=== PATIENT | male | born 1990 | race African-American/Black ===

== ENCOUNTER 2020-06-15 00:34 | Emergency (ER) | payer SELFPAY ==
--- NOTE | ~2020-06-15 | CT_ITS ---
EXAMINATION: CT brain wo con EXAM DATE: 06/15/2020 02:27 INDICATION: Headache. TECHNIQUE: Spiral CT of the head was performed without contrast. Axial, coronal and sagittal images were reviewed. The dose-length product (DLP) for this examination was 605.33 mGy-cm. The exposure w as tailored according to patient size, and iterative reconstruction (ASIR) was used as additional dos e reduction technique. There is no prior study for comparison. FINDINGS: There is no acute intraparenchymal hemorrhage. No evidence of intraparenchymal brain mass lesion. No evidence of acute infarction. There is no mass effect or midline shift. The ventricles are normal in size. There are no extra-axial collections. There are no acute calvarial fractures. T he orbits are unremarkable. Soft tissue is unremarkable. The visualized sinuses and mastoid air edith ls are well aerated. IMPRESSION: Normal head CT examination. Reviewed, dictated and finalized at location A. MAKER IMPRESSION: Normal head CT examination.
[2020-06-15 00:42] VITALS: BP 132/82; PULSE 58; RESP 16; TEMP 36.6; O2SAT 97
[2020-06-15 01:00] VITALS: BP 125/91; PULSE 60; RESP 18; O2SAT 97
--- NOTE | 2020-06-15 01:13 | ED.HA ---
HPI - Headache General Chief Complaint: Headache Stated Complaint: headache Time Seen by Provider: 06/15/20 00:47 Source: RN notes reviewed History of Present Illness HPI Narrative: Patient presents emergency department from home for headache. Patient states over the last 2 weeks has been having intermittent headaches that are over the bilateral temporal region. Described as aching and pressure in nature and usually last approximately 1 to 2 hours and then resolve on their own. He states that prior to 2 weeks ago he had no history of regular headaches. He states that this evening he also experienced a nosebleed states he has had a history of intermittent nosebleeds since he was a child but this episode lasted longer he denies any bleeding at this time he denies any fevers or chills vision changes numbness or tingling in extremities chest pain shortness of breath abdominal pain nausea vomiting or any other symptoms he does note 1 single episode of emesis yesterday but denies any today states he took no pain medication for the symptoms Related Data Allergies Allergy/AdvReac Type Severity Reaction Status Date / Time No Known Allergies Allergy Verified 06/15/20 01:40 Review of Systems Review of Systems: Narrative: Gen.: Denies fevers or chills Eyes: Denies eye pain or visual change ENT: Denies congestion or's epistaxes earlier Respiratory: Denies shortness of breath or cough CV: Denies chest pain or palpitations GI: Denies abdominal pain nausea, emesis or diarrhea Musculoskeletal: Denies back pain or muscle pain Neuro: See HPI Skin: Denies rash Except as documented, all other systems reviewed and negative [facility] Past Medical History Medical History (Updated 06/15/20 @ 02:54 by Tree Sharma DO) Patient denies significant medical history Social History Social History (Updated 06/15/20 @ 01:14 by Tree Sharma DO) Smoking status: Current every day smoker Gender identity (if verbalized by the patient): Male Exam Narrative: Exam Narrative: APPEARANCE: No acute distress, nontoxic, resting in bed HEENT: Normocephalic, atraumatic, OMM, TMs clear bilaterally EYES: PERRL, EOMI NECK: Supple, nontender, full range of motion without pain, no meningismus RESPIRATORY: No respiratory distress, clear to auscultation bilaterally with no rhonchi wheezing or rales CARDIOVASCULAR: RRR s murmur ABDOMINAL: Soft, nontender, nondistended MUSCULOSKELETAL: Moves all extremities. No clubbing, cyanosis or edema. NEURO: A and O ?3, following commands, speech normal, no facial droop,muscle strength 5 out of 5 bilateral upper and lower extremities SKIN:: Warm, dry. Normal Color PSYCHIATRIC: Normal affect/mood Course Course Emergency Course: Patient states headache is improved with medication Discussed with patient results of workup and diagnosis. Discussed need for follow-up with primary care, proper use of medication, and reasons to return to the emergency department. Patient understands and agrees to current treatment plan Vital Signs Vital signs: Vital Signs Temperature 97.8 F 06/15/20 00:42 Pulse Rate 58 L 06/15/20 00:42 Respiratory Rate 16 06/15/20 00:42 Blood Pressure 132/82 06/15/20 00:42 Pulse Oximetry 97 06/15/20 00:42 Temperature 97.8 F 06/15/20 00:42 Pulse Rate 58 L 06/15/20 00:42 Respiratory Rate 16 06/15/20 00:42 Blood Pressure 132/82 06/15/20 00:42 Pulse Oximetry 97 06/15/20 00:42 MDM - Headache MDM Narrative Medical decision making narrative: Patient's headache was not sudden or maximal in onset. There are no focal deficits on exam. Subarachnoid hemorrhage is felt to be unlikely at this time. There is no history of fever and neck is supple to evaluation without meningismus. Meningitis is felt to be unlikely. No traumatic history or signs of trauma on evaluation. Risk factors for cerebral venous thrombosis reviewed, no visual acuity change benign funduscopy. Cerebral venous thrombosis
[2020-06-15 01:29] LABS: Basophils Absolute Auto 0.1 K/mm3 (0.0-0.1); Basophils Percent Auto 0.7 % (0.2-1.2); Eosinophils Absolute Auto 0.1 K/mm3 (0-0.3); Eosinophils Percent Auto 1.4 % (0-4.4); Hematocrit 40.6 % (42.0-52.0); Hemoglobin 13.9 g/dL (14.0-18.0); Immature Granulocyte Absolute 0.01 K/mm3 (0.00-0.031); Immature Granulocyte Percent A 0.1 % (0-0.5); Lymphocytes Absolute Auto 3.36 K/mm3 (0.9-3.2); Lymphocytes Percent Auto 45.4 % (18.3-44.2); Mean Corpuscular HGB Conc 34.2 g/dl (32-36); Mean Corpuscular Hemoglobin 28.4 pg (26-34); Mean Corpuscular Volume 82.9 fl (80-100); Mean Platelet Volume 10.1 fl (7.4-10.4); Monocytes Absolute Auto 0.8 K/mm3 (0.1-0.6); Monocytes Percent Auto 11.2 % (2.6-8.5); Neutrophils Absolute Auto 3.1 K/mm3 (1.3-6.7); Neutrophils Percent Auto 41.2 % (45.5-73.1); Platelet Count Result 236 k/mm3 (150-375); Red Cell Distribution Width 14.4 % (11.5-14.5); White Blood Count 7.4 K/mm3 (4.5-10.0)
[2020-06-15] MEDS: diphenhydrAMINE HCl INJ 50 MG/ML VIAL 25 MG IV PUSH (01:41)
[2020-06-15] MEDS: KETOROLAC 30 MG/ML VIAL (*BKC) IV PUSH (01:41)
[2020-06-15] MEDS: SODIUM CHLORIDE 0.9% IV 1,000 ML 999 ML IV CONT (01:42)
[2020-06-15 01:52] LABS: Alanine Aminotransferase 21 U/L (4-50); Alkaline Phosphatase 45 U/L (38-126); Anion Gap 6 mmol/L (8-16); Aspartate Amino Transferase 25 U/L (17-59); Bilirubin,Total 0.5 mg/dL (0.2-1.3); Blood Urea Nitrogen 7 mg/dL (9-20); Carbon Dioxide 31 mmol/L (22-30); Chloride 103 mmol/L (98-107); Estimated CRCL calculation 124 ml/min; Estimated Glomerular Filt Rate > 60; Glucose 84 mg/dL (75-110); Potassium 3.6 mmol/L (3.4-5.0); Sodium 140 mmol/L (137-145)
[2020-06-15 02:00] VITALS: BP 140/99; PULSE 58; RESP 16; O2SAT 100
[2020-06-15 03:00] VITALS: BP 133/83; PULSE 56; RESP 16; O2SAT 98
== END 2020-06-15 03:30 | disposition home or self-care (01) ==
PROVIDERS: Emergency Provider Emergency Medicine; Referring Provider Family Medicine
DX: R51.9 Headache, unspecified (principal); F17.200 Nicotine dependence, unspecified, uncomplicated
CPT/HCPCS: 36415; 70450; 80053; 85025; 96361; 96374; 96375; 99284; J1200; J1885; J7030

== ENCOUNTER 2020-10-07 16:39 | Emergency (ER) | payer SELFPAY ==
--- NOTE | ~2020-10-07 | XR_ITS ---
XR shoulder LT min 2V DATE: 10/07/2020 17:27 INDICATION: Pain, numbness of arm. TECHNIQUE: 4 views COMPARISON: None FINDINGS: No fracture or dislocation, periosteal reaction or bone destruction or abnormal soft tissue calcification. IMPRESSION: Negative Reviewed, dictated and finalized at location A. IMPRESSION: Negative
[2020-10-07 17:04] VITALS: PULSE 119; RESP 20; TEMP 37.1; O2SAT 98
[2020-10-07] MEDS: KETOROLAC (*BKC) 60 MG/2 ML VIAL IM (19:20)
[2020-10-07 19:35] VITALS: BP 135/74; PULSE 83; RESP 16; O2SAT 98
--- NOTE | 2020-10-07 20:23 | ED.GENADULT ---
HPI - General Adult General Chief complaint: Extremity Injury, Upper Stated complaint: left shoulder pain Time Seen by Provider: 10/07/20 18:49 Source: patient Mode of arrival: ambulatory Limitations: no limitations History of Present Illness HPI narrative: Patient presents with chief complaint of dislocation to the left shoulder that occurred when he reached back and out for a light switch. 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 Patient states he generally is able to reduce it on his own but was unable to so he presented to the emergency department. Patient states that he believes his shoulder may have relocated while waiting in the waiting room. Patient states that he has also had issues where his knee dislocated but not at this time. Patient does not have a primary care provider. Patient has not seen lan specialist for his shoulder but has thought about it as this continues to happen so easily. Related Data Home Medications Medication Instructions Recorded Confirmed No Home Medications 10/07/20 10/07/20 Allergies Allergy/AdvReac Type Severity Reaction Status Date / Time No Known Allergies Allergy Verified 10/07/20 18:39 Review of Systems Review of Systems: Narrative: CONSTITUTIONAL: Denies fever, chills, or sweats. EYES: Denies visual changes, redness, or discharge. ENT: Denies rhinorrhea, congestion, sore throat, or otalgia. CARDIOVASCULAR: Denies chest pain, palpitations, or edema. RESPIRATORY: Denies cough or dyspnea. GASTROINTESTINAL: Denies abdominal pain, nausea, vomiting, or diarrhea. GENITOURINARY: Denies dysuria or hematuria. SKIN: Denies rash or itching. MUSCULOSKELETAL: Left shoulder pain and dislocation denies back pain or myalgia. NEUROLOGIC: Denies headache, numbness, dizziness, or weakness. PSYCHIATRIC: Denies anxiety or depression. PMFSH Past Medical History Medical History (Updated 10/07/20 @ 18:54 by Milena Rice PA-C) Patient denies significant medical history Social History Social History (Updated 06/15/20 @ 01:14 by Tree Sharma DO) Smoking status: Current every day smoker Gender identity (if verbalized by the patient): Male Exam Narrative: Exam Narrative: GENERAL: Well-appearing, well-nourished, and in no acute distress. HEAD: Normocephalic, atraumatic. EYES: PERRLA and EOMI. ENT: Nares clear, no rhinorrhea or epistaxis. Mucous membranes moist. Oropharynx without tonsillar hypertrophy exudate or other lesions. Bilateral TMs pearly zarate nonbulging NECK: Supple. No adenopathy or masses. CHEST: Clear to auscultation. No respiratory distress. No wheezes rales or rhonchi HEART: Regular rate and rhythm. No murmur heard. Normal peripheral pulses. EXTREMITIES: No appreciated deformity to left shoulder however there is tenderness with anterior palpation. Normal range of motion. No edema. SKIN: Warm, dry, no rash. NEURO: No focal deficits. Alert and oriented x3. PSYCH: Normal mood and affect. Course Vital Signs Vital signs: Vital Signs Temperature 98.7 F 10/07/20 17:04 Pulse Rate 119 H 10/07/20 17:04 Respiratory Rate 20 10/07/20 17:04 Pulse Oximetry 98 10/07/20 17:04 Temperature 98.7 F 10/07/20 17:04 Pulse Rate 83 10/07/20 19:35 Respiratory Rate 16 10/07/20 19:35 Blood Pressure 135/74 10/07/20 19:35 Pulse Oximetry 98 10/07/20 19:35 Medical Decision Making MDM Narrative Medical decision making narrative: X-ray shows the patient's left elbow is not dislocated. Patient given Toradol shot for pain. Patient instructed to follow-up with primary care lan specialist for further investigation. I have informed the patient with how easy he is to shoulder sliding out he may have some tendon and ligament damage that needs to be repaired or evaluated. He also maintain having his knee dislocate. Consult the patient to discuss evaluation for Oj-Danlos or other conne
== END 2020-10-07 19:35 | disposition home or self-care (01) ==
PROVIDERS: Emergency Provider Emergency Medicine
DX: M24.412 Recurrent dislocation, left shoulder (principal); F17.200 Nicotine dependence, unspecified, uncomplicated
CPT/HCPCS: 73030; 96372; 99283; J1885

== ENCOUNTER 2023-05-27 10:15 | Emergency (ER) | payer SELFPAY ==
--- NOTE | ~2023-05-27 | CT_ITS ---
EXAMINATION: CT soft tissue neck w con DATE: 05/27/2023 11:43 INDICATION: Right neck abscess. TECHNIQUE: Computed tomography (CT) of the neck was performed with 75 mL Omnipaque-350 intravenous co ntrast. Automated exposure control and iterative reconstruction technique were employed. The dose-monica gth product was 548.40 mGy-cm. COMPARISON: None FINDINGS: There are no pathologically enlarged lymph nodes. There is subcutaneous fat stranding of th e lower face. There are mucous retention cysts in the maxillary sinuses. The mastoid air cells are no rmal. There is mild cervical spondylosis. IMPRESSION: 1. Subcutaneous fat stranding in the lower face, consistent with inflammation. No abscess. Reviewed, dictated and finalized at location E.
[2023-05-27 10:58] LABS: Basophils Absolute Auto 0.1 K/mm3 (0.0-0.1); Basophils Percent Auto 0.6 % (0.2-1.2); Eosinophils Absolute Auto 0.1 K/mm3 (0-0.3); Eosinophils Percent Auto 0.6 % (0-4.4); Hematocrit 44.1 % (42.0-52.0); Hemoglobin 14.4 g/dL (14.0-18.0); Immature Granulocyte Absolute 0.02 K/mm3 (0.00-0.031); Immature Granulocyte Percent A 0.2 % (0-0.5); Lymphocytes Absolute Auto 2.37 K/mm3 (0.9-3.2); Lymphocytes Percent Auto 24.4 % (18.3-44.2); Mean Corpuscular HGB Conc 32.7 g/dl (32-36); Mean Corpuscular Hemoglobin 27.2 pg (26-34); Mean Corpuscular Volume 83.2 fl (80-100); Mean Platelet Volume 10.4 fl (7.4-10.4); Monocytes Absolute Auto 1.2 K/mm3 (0.1-0.6); Monocytes Percent Auto 12.8 % (2.6-8.5); Neutrophils Percent Auto 61.4 % (45.5-73.1); Platelet Count Result 242 k/mm3 (150-375); Red Cell Distribution Width 14.1 % (11.5-14.5); White Blood Count 9.7 K/mm3 (4.5-10.0)
--- NOTE | 2023-05-27 11:09 | ED.SKABFB ---
HPI - Skin/Abscess/Foreign Bdy General Chief complaint: Skin/Abscess/Foreign Body Stated complaint: abscess Time Seen by Provider: 05/27/23 10:26 Source: patient Mode of arrival: ambulatory Limitations: no limitations History of Present Illness HPI narrative: Patient is a 32-year-old male who presents the ED with report of abscess to his neck and chin. Patient reports he first noticed an abscess to his right lower neck a few days ago. He has tried popping and draining it without improvement. He reports localized pain, but denies difficulty breathing or swallowing. He then noticed several areas of tenderness and scabbing, yellow drainage underneath it but his chin with the tenderness extending down his neck. He thinks he knicked this area while shaving. Denies any fevers, N/V. Related Data Allergies Allergy/AdvReac Type Severity Reaction Status Date / Time No Known Allergies Allergy Verified 10/07/20 18:39 Review of Systems Review of Systems: CONSTITUTIONAL: Denies fever, chills, or sweats. ENT: See HPI. CARDIOVASCULAR: Denies chest pain. RESPIRATORY: Denies dyspnea. GASTROINTESTINAL: Denies nausea, vomiting. SKIN: See HPI. NEUROLOGIC: Denies headache, numbness, or weakness. All systems reviewed & are unremarkable except as noted in HPI and below PMFSH Past Medical History Medical History Patient denies significant medical history Social History Social History Smoking status: Current every day smoker Gender identity (if verbalized by the patient): Male Exam Narrative: GENERAL: Well appearing, obese with BMI of 32.9, non-toxic, in no acute distress. HEAD: Normocephalic, atraumatic. NECK: Supple. No adenopathy, no masses. 2x2cm focal abscessed area to R anterior lower neck. Small area of focal fluctuance and tenderness noted. White pustular head to abscess with scabbed region. Scattered pustular areas under left sided chin with some crusted yellow drainage. No focal fluctuance noted. Induration under pustular regions extending approx 5cm down anterior neck. RESPIRATORY: Airway patent, respirations nonlabored. Clear to auscultation bilaterally, no rales, rhonchi, wheezing. No stridor. CARDIOVASCULAR: Regular rate and rhythm without murmurs, rubs, or gallops. Radial pulses 2+ and equal bilaterally. MUSCULOSKELETAL: Moves all extremities. No gross deformities. SKIN: Warm, dry, normal color. No rashes. NEURO: A&O X3. Speech clear. Cranial nerves II-XII grossly intact. Steady gait. No ataxic movements. PSYCHIATRIC: Appropriate mood and affect. Normal interaction. Course Vital Signs Vital signs: Vital Signs Pulse Rate 67 05/27/23 12:51 Respiratory Rate 15 05/27/23 12:51 Blood Pressure 118/77 05/27/23 12:51 Pulse Oximetry 100 05/27/23 12:51 Pulse Rate 67 05/27/23 12:51 Respiratory Rate 15 05/27/23 12:51 Blood Pressure 118/77 05/27/23 12:51 Pulse Oximetry 100 05/27/23 12:51 Procedures Abscess I/D neck: Date of Incision: 05/27/23 Time of Incision: 12:40 Side (if applicable): right Sedation/analgesia: none Local Anesthetic: lidocaine 1% Amount of anesthesia used (mL): 3 Technique: incised with #11 blade Amount of fluid expressed (mL): 2 Irrigation: Yes Packing used?: none I&D Results: Pus and Blood Complications: other (none) MDM - Skin/Abscess/Foreign Bdy MDM Narrative Medical decision making narrative: Patient presented to ED with abscess to areas to right-sided neck, left chin. Patient's vital stable upon arrival. Afebrile. Exam consistent with abscess to right-sided neck. Pustular areas under her chin appear more consistent with impetigo with crusted yellow drainage. The induration under the chin does seem to extend fairly deep and down the anterior neck. Difficult
[2023-05-27 11:10] LABS: Anion Gap 7 mmol/L (8-16); Blood Urea Nitrogen 12 mg/dL (9-20); Calcium 9.3 mg/dL (8.4-10.2); Carbon Dioxide 30 mmol/L (22-30); Chloride 100 mmol/L (98-107); Estimated CRCL calculation 135 ml/min; Estimated Glomerular Filt Rate > 60; Glucose 83 mg/dL (65-110); Potassium 4.1 mmol/L (3.4-5.0); Sodium 137 mmol/L (137-145)
[2023-05-27] MEDS: LIDOCAINE HCL 1% LOCAL INJ 10 ML VIAL 5 ML INFILTRATE (12:20)
[2023-05-27] MEDS: DOXYCYCLINE HYCLATE 100 MG TABLET PO (12:44)
[2023-05-27 12:51] VITALS: BP 118/77; PULSE 67; RESP 15; O2SAT 100
== END 2023-05-27 12:53 | disposition home or self-care (01) ==
PROVIDERS: Emergency Provider Physician Assistant
DX: L02.11 Cutaneous abscess of neck (principal); L01.00 Impetigo, unspecified; F17.200 Nicotine dependence, unspecified, uncomplicated
CPT/HCPCS: 10060; 36415; 70491; 80048; 85025; 87070; 87077; 87147; 87186; 87205; 99284; A9270; Q9967

== ENCOUNTER 2023-08-26 06:20 | Emergency (ER) | payer SELFPAY ==
--- NOTE | ~2023-08-26 | CT_ITS ---
EXAMINATION: CT pelvis w con DATE: 08/26/2023 09:51 INDICATION: Abscess of left buttock. TECHNIQUE: Computed tomography (CT) of the pelvis was performed with 100 mL Omnipaque 350 intravenous contrast. Automated exposure control and iterative reconstruction technique were employed. The dose- length product was 510.80 mGy-cm. COMPARISON: None FINDINGS: There are no dilated loops of bowel. There are no pathologically enlarged lymph nodes. Ther e is no free intraperitoneal fluid. In the subcutaneous fat of the left buttocks, there is a weblike distribution of fluid spanning 5.7 x 3.7 cm with surrounding fat stranding. There is mild lumbar spon dylosis. IMPRESSION: 1. Weblike distribution of fluid with surrounding fat stranding in the subcutaneous fat in left butto ck, consistent with abscess. Reviewed, dictated and finalized at location A. [employer] IMPRESSION: 1. Weblike distribution of fluid with surrounding fat stranding in the subcutan eous fat in left buttock, consistent with abscess.
[2023-08-26 06:44] VITALS: BP 120/74; PULSE 93; RESP 15; TEMP 37.1; O2SAT 96
--- NOTE | 2023-08-26 07:38 | ED.SKABFB ---
HPI - Skin/Abscess/Foreign Bdy General Chief complaint: Skin/Abscess/Foreign Body Stated complaint: 2 cysts on butt Time Seen by Provider: 08/26/23 07:37 Source: patient Mode of arrival: ambulatory Limitations: no limitations History of Present Illness HPI narrative: Left buttock abscess, leaking, since 02/11/2020. He denies any fever, chills, nausea, vomiting. Related Data Allergies Allergy/AdvReac Type Severity Reaction Status Date / Time No Known Allergies Allergy Verified 10/07/20 18:39 Review of Systems Review of Systems: All systems reviewed & are unremarkable except as noted in HPI and below PMFSH Past Medical History Medical History Patient denies significant medical history Social History Social History Smoking status: Current every day smoker Gender identity (if verbalized by the patient): Male Exam Narrative: General appearance: Well-developed, well-nourished Skin: Normal color Head: Normocephalic, nontraumatic Eyes: Clear conjunctiva ENT: Oropharynx normal, ears normal, nose normal Neck: Supple, nontender Chest and respiratory: Airway patent, no respiratory distress, no accessory muscle use Heart: Regular rate/rhythm Abdomen: Soft, nontender, no organomegaly, quiet bowel sounds Vascular: Normal peripheral pulses, normal capillary refill. Musculoskeletal: Left buttock showed 10 x 10 cm abscess, no discharge, tender to touch, no erythema. Neurologic: Alert and oriented ?3, [employer]AT[employer] is normal as tested, no gross motor deficit Course Consultations Consultation #1: DR. FALL AGREED WITH THE PLAN TO DISCHARGE PATIENT AND FOLLOW-UP NEXT WEEK OUTPATIENT Date: 08/26/23 Time: 13:40 Vital Signs Vital signs: Vital Signs Temperature 37.1 C 08/26/23 06:44 Pulse Rate 93 08/26/23 06:44 Respiratory Rate 15 08/26/23 06:44 Blood Pressure 120/74 08/26/23 06:44 Pulse Oximetry 96 08/26/23 06:44 Oxygen Delivery Room Air 08/26/23 06:44 Temperature 36.9 C 08/26/23 11:39 Pulse Rate 89 08/26/23 11:39 Respiratory Rate 18 08/26/23 11:39 Blood Pressure 123/82 08/26/23 11:39 Pulse Oximetry 98 08/26/23 11:39 Oxygen Delivery Room Air 08/26/23 06:44 Procedures Abscess I/D other: Date of Incision: 08/26/23 Time of Incision: 12:14 Side (if applicable): left Local Anesthetic: lidocaine 1% and with epi Amount of anesthesia used (mL): 10 Technique: incised with #11 blade Amount of fluid expressed (mL): 40 Irrigation: Yes I&D Results: Pus and Blood Complications: pain Abcess I&D Additional Comments: TIME USED FOR INCISION AND DRAINAGE 20 MINUTES MDM - Skin/Abscess/Foreign Bdy MDM Narrative Medical decision making narrative: PATIENT CAME WITH ABSCESS RIGHT BUTTOCK WORKUP TODAY SHOWED ELEVATED WBC NO FEVER OR CHILLS OR NAUSEA OR VOMITING, HALF AN HOUR AFTER ARRIVAL START LEAKING PURULENT DISCHARGE INCISION AND DRAINAGE, 40 ML OF PURULENT DISCHARGE MIXED WITH BLOOD, PACKED, VANCOMYCIN IV, DISCHARGED ON KEFLEX, DR. FALL WAS NOTIFIED, OUTPATIENT FOLLOW-UP Differential Diagnosis Differential diagnosis: Likely abscess of skin or subcutaneous tissue Lab Data Attestation: I reviewed the patient's lab results. 08/26/23 09:04 08/26/23 09:04 Labs: Lab Results 08/26/23 Range/Units 09:04 WBC 15.4 H (4.5-10.0) K/mm3 RBC 4.89 (4.6-6.20) M/mm3 Hgb 13.2 L (14.0-18.0) g/dL Hct 39.7 L (42.0-52.0) % MCV 81.2 (80-100) fl MCH 27.0 (26-34) pg MCHC 33.2 (32-36) g/dl RD
[2023-08-26 09:17] LABS: Basophils Absolute Auto 0.1 K/mm3 (0.0-0.1); Basophils Percent Auto 0.3 % (0.2-1.2); Eosinophils Absolute Auto 0.1 K/mm3 (0-0.3); Eosinophils Percent Auto 0.4 % (0-4.4); Hematocrit 39.7 % (42.0-52.0); Hemoglobin 13.2 g/dL (14.0-18.0); Immature Granulocyte Absolute 0.09 K/mm3 (0.00-0.031); Immature Granulocyte Percent A 0.6 % (0-0.5); Lymphocytes Absolute Auto 2.26 K/mm3 (0.9-3.2); Lymphocytes Percent Auto 14.7 % (18.3-44.2); Mean Corpuscular HGB Conc 33.2 g/dl (32-36); Mean Corpuscular Volume 81.2 fl (80-100); Mean Platelet Volume 10.1 fl (7.4-10.4); Monocytes Absolute Auto 1.8 K/mm3 (0.1-0.6); Monocytes Percent Auto 11.9 % (2.6-8.5); Neutrophils Absolute Auto 11.1 K/mm3 (1.3-6.7); Neutrophils Percent Auto 72.1 % (45.5-73.1); Platelet Count Result 284 k/mm3 (150-375); Red Blood Count 4.89 M/mm3 (4.6-6.20); Red Cell Distribution Width 14.1 % (11.5-14.5); White Blood Count 15.4 K/mm3 (4.5-10.0)
[2023-08-26 09:29] LABS: Alanine Aminotransferase 64 U/L (6-50); Albumin Level 3.9 g/dL (3.5-5.1); Alkaline Phosphatase 122 U/L (38-126); Anion Gap 11 mmol/L (8-16); Aspartate Amino Transferase 41 U/L (17-59); Bilirubin,Total 0.7 mg/dL (0.2-1.3); Blood Urea Nitrogen 12 mg/dL (9-20); Carbon Dioxide 25 mmol/L (22-30); Chloride 102 mmol/L (98-107); Estimated CRCL calculation 130 ml/min; Estimated Glomerular Filt Rate > 60; Glucose 79 mg/dL (65-110); Potassium 3.6 mmol/L (3.4-5.0); Sodium 138 mmol/L (137-145)
[2023-08-26] MEDS: ONDANSETRON INJ 4 MG/2 ML VIAL (11:35)
[2023-08-26] MEDS: MORPHINE SULFATE (*CRX) 4 MG/ML INJ IV PUSH (11:37)
[2023-08-26 11:39] VITALS: BP 123/82; PULSE 89; RESP 18; TEMP 36.9; O2SAT 98
[2023-08-26] MEDS: KETOROLAC 30 MG/ML VIAL (*BKC) IV PUSH (12:17)
[2023-08-26] MEDS: VANCOMYCIN 1,250 MG/NS 250 ML 1,250 MG/250 ML BAG 166.67 MG IVPB ×2 (12:53→14:10)
[2023-08-26 15:50] VITALS: BP 120/77; PULSE 79; RESP 18; TEMP 36.9; O2SAT 99
== END 2023-08-26 16:01 | disposition home or self-care (01) ==
PROVIDERS: Emergency Provider Emergency Medicine
DX: L02.31 Cutaneous abscess of buttock (principal); F17.200 Nicotine dependence, unspecified, uncomplicated
CPT/HCPCS: 10061; 36415; 72193; 80053; 85025; 87070; 87205; 96365; 96366; 96375; 99284; J1885; J2270; J2405; J3370; Q9967